=== PATIENT | male | born 1950 | race Caucasian/White ===

== ENCOUNTER 2017-05-07 20:31 | Emergency (ER) | payer MEDICARE, MEDICAID ==
[2017-05-07 20:45] VITALS: BP 114/70; PULSE 88; RESP 20; TEMP 98.3; O2SAT 98
--- NOTE | 2017-05-07 21:10 | C.PDOC ---
History Of Present Illness 67 y/o male hx of sciatica presents to the ED c/o pain to left lower back.The pain radiates to left buttock and the left thigh. The patient has been taking Advil and did not alleviate the pain. The pain worsens while ambulating and doing movement. The patient denies urinary or bowel incontinence, weakness, numbness, trauma Time Seen by Provider: 05/07/17 20:48 Chief Complaint (Nursing): Back Pain History Per: Patient Onset/Duration Of Symptoms: Days Current Symptoms Are (Timing): Still Present Severity: Moderate Past Medical History Reviewed: Historical Data, Nursing Documentation, Vital Signs Vital Signs: Last Vital Signs Temp 98.3 F 05/07/17 20:42 Pulse 88 05/07/17 20:42 Resp 20 05/07/17 20:42 BP 114/70 05/07/17 20:42 Pulse Ox 98 05/07/17 21:57 - Medical History PMH: HTN Denies: Chronic Kidney Disease Surgical History: No Surg Hx Family History: States: Unknown Family Hx - Social History Hx Alcohol Use: Yes Hx Substance Use: No - Immunization History Hx Tetanus Toxoid Vaccination: No Hx Influenza Vaccination: No Hx Pneumococcal Vaccination: Yes Review Of Systems Constitutional: Negative for: Fever, Chills Genitourinary: Negative for: Dysuria, Incontinence, Hematuria Musculoskeletal: Positive for: Back Pain (left lower buttock radiating and the left thigh) Neurological: Negative for: Weakness, Numbness Physical Exam - Physical Exam Appears: Well, Non-toxic, No Acute Distress Skin: Warm, Dry Head: Atraumatic, Normacephalic Eye(s): bilateral: Normal Inspection Oral Mucosa: Moist Neck: Supple Gastrointestinal/Abdominal: Soft, No Tenderness Back: Normal Inspection, No CVA Tenderness, No Vertebral Tenderness, Paraspinal Tenderness (Lt paralumbar), Straight Leg Raising (positive at 40 degrees on the left), Other Extremity: Capillary Refill (<2sec.), No Deformity Neurological/Psych: Oriented x3, Normal Speech, Normal Motor, Normal Sensation Gait: Steady ED Course And Treatment O2 Sat by Pulse Oximetry: 98 (RA) Pulse Ox Interpretation: Normal Progress Note: The patient refused medication in ED. The patient is fully ambulatory. The patient is advised to have a follow up with PMD for further evaluation. Disposition Counseled Patient/Family Regarding: Rx Given - Disposition Disposition: HOME/ ROUTINE Disposition Time: 21:10 Condition: STABLE Additional Instructions: Please follow up with PMD Take meds as directed Return to ER if worse Prescriptions: Cyclobenzaprine [Cyclobenzaprine HCl] 10 mg PO HS #10 tab Naproxen [Naprosyn] 1 tab PO BID PRN #20 tab PRN Reason: Pain Instructions: Sciatica (ED) Forms: [employer] (Greek) - Clinical Impression Clinical Impression: Sciatica - PA / SUPERINTENDENT CUSTODIAN JANITOR / Resident Statement MD/DO has reviewed & agrees with the documentation as recorded. MD/DO has examined the patient and agrees with the treatment plan. - Scribe Statement The provider has reviewed the documentation as recorded by the Carlyn Jeter All medical record entries made by the Carlyn were at my direction and personally dictated by me. I have reviewed the chart and agree that the record accurately reflects my personal performance of the history, physical exam, medical decision making, and the department course for this patient. I have also personally directed, reviewed, and agree with the discharge instructions and disposition.
== END 2017-05-07 21:38 | disposition home or self-care (01) ==
LOC: C.ER 20:31
DX: M54.32 Sciatica, left side (principal)

== ENCOUNTER 2018-12-23 22:56 | Observation (INO) | payer MEDICAID, MEDICARE ==
--- NOTE | 2018-12-23 23:57 | C.PDOC ---
Time Seen by Provider: 12/23/18 23:57 Chief Complaint (Nursing): Back Pain Past Medical History Reviewed: Historical Data, Nursing Documentation, Vital Signs Vital Signs: Last Vital Signs Temp 99.1 F 12/23/18 23:16 Pulse 65 12/23/18 23:16 Resp 20 12/23/18 23:16 BP 137/83 12/23/18 23:16 Pulse Ox 98 12/23/18 23:16 Primary Care Provider: Non [facility] Provider, - Medical History PMH: HTN Denies: Chronic Kidney Disease Family History: States: Unknown Family Hx - Social History Hx Alcohol Use: Yes Hx Substance Use: No - Immunization History Hx Tetanus Toxoid Vaccination: No Hx Influenza Vaccination: No Hx Pneumococcal Vaccination: Yes ED Course And Treatment ECG: Interpreted By Me, Viewed By Me ECG Rhythm: Sinus Rhythm (60), R BBB, Nonspecific Changes O2 Sat by Pulse Oximetry: 98 Pulse Ox Interpretation: Normal Disposition Counseled Patient/Family Regarding: Studies Performed, Diagnosis - Disposition Disposition Time: 23:57 Condition: FAIR Forms: [employer] (Bengali)
[2018-12-24] MEDS ORDERED: Aspirin 325 mg EC Tablets PO STA (00:46)
--- NOTE | 2018-12-24 00:57 | C.PDOC ---
History Of Present Illness Patient presents with some back pain and chest pain worsening over the last 3 days. Dull aching discomfort. No f/c/n/v. Back pain is worse with movement. The chest pain is dull, non radiating. Speaking in complete sentences. Quit smoking 18 months ago Time Seen by Provider: 12/23/18 23:57 Chief Complaint (Nursing): Back Pain History Per: Patient History/Exam Limitations: no limitations Onset/Duration Of Symptoms: Days Severity: Moderate Pain Scale Rating Of: 4 Reports Recently: Treated By A Physician Recent travel outside of the [place]: No Additional History Per: Patient Past Medical History Reviewed: Historical Data, Nursing Documentation, Vital Signs Vital Signs: Last Vital Signs Temp 99.1 F 12/23/18 23:16 Pulse 65 12/23/18 23:16 Resp 20 12/23/18 23:16 BP 137/83 12/23/18 23:16 Pulse Ox 98 12/23/18 23:16 Primary Care Provider: Non [facility] Provider, - Medical History PMH: HTN Denies: Chronic Kidney Disease Family History: States: No Known Family Hx - Social History Hx Alcohol Use: Yes Hx Substance Use: No - Immunization History Hx Tetanus Toxoid Vaccination: No Hx Influenza Vaccination: No Hx Pneumococcal Vaccination: Yes Review Of Systems Constitutional: Negative for: Fever, Chills ENT: Negative for: Throat Pain Cardiovascular: Positive for: Chest Pain Respiratory: Negative for: Shortness of Breath Gastrointestinal: Negative for: Nausea, Vomiting, Abdominal Pain Genitourinary: Negative for: Dysuria Musculoskeletal: Positive for: Back Pain Skin: Negative for: Rash Neurological: Negative for: Weakness Psych: Negative for: Anxiety Physical Exam - Physical Exam Appears: Non-toxic, No Acute Distress Skin: Warm, Dry Head: Normacephalic Eye(s): bilateral: Normal Inspection Oral Mucosa: Moist Neck: Trachea Midline, Supple Chest: Symmetrical Cardiovascular: Rhythm Regular Respiratory: No Rales, Rhonchi, No Wheezing Gastrointestinal/Abdominal: Soft, No Tenderness, No Distention Back: No CVA Tenderness, No Vertebral Tenderness, Muscle Spasm (thoracic t-8-10) Extremity: Normal ROM Extremity: Bilateral: Atraumatic, Normal Color And Temperature, Normal ROM Pulses: Left Dorsalis Pedis: Normal, Right Dorsalis Pedis: Normal Neurological/Psych: Oriented x3, Normal Speech, Normal Cognition Gait: Steady ED Course And Treatment - Laboratory Results Result Diagrams: 12/24/18 01:21 12/24/18 01:21 ECG: Interpreted By Me, Viewed By Me ECG Rhythm: Sinus Rhythm (60), Nonspecific Changes O2 Sat by Pulse Oximetry: 98 Pulse Ox Interpretation: Normal - Radiology CXR: Interpreted by Me, Viewed By Me CXR Interpretation: No: Infiltrates, Fracture, Pnemothorax Disposition Discussed With Dr.: Kali Rodriguez Comment: accepted the pt on his service and took over the care at 3:26AM Doctor Will See Patient In The: ED Counseled Patient/Family Regarding: Studies Performed, Diagnosis - Disposition Disposition: HOSPITALIZED Disposition Time: 00:54 Condition: FAIR Forms: [employer] (Yoruba) - POA Present On Arrival: None - Clinical Impression Clinical Impression: Chest pain Decision To Admit - Pt Status Changed To: Hospital Disposition Of: Observation - . Bed Request Type: Telemetry Admitting Physician: Kali Rodriguez Patient Diagnosis: Chest pain
[2018-12-24 01:02] LABS: SQUAMOUS EPITHIAL 1 /hpf (0-5); URINE BILIRUBIN NEGATIVE (NEGATIVE); URINE BLOOD NEGATIVE (NEGATIVE); URINE CLARITY Clear (Clear); URINE COLOR Straw (YELLOW); URINE GLUCOSE (UA) NORMAL (Normal); URINE LEUKOCYTE ESTERASE NEG Leu/uL (Negative); URINE PROTEIN NEGATIVE (NEGATIVE); URINE UROBILINOGEN NORMAL mg/dL (0.2-1.0)
[2018-12-24] MEDS ORDERED: Aspirin 325 mg EC Tablets PO ONE (01:25)
[2018-12-24 01:34] LABS: PARTIAL THROMBOPLASTIN TIME 30.1 SECONDS (21-34); PROTHROMBIN TIME 11.1 SECONDS (9.7-12.2)
[2018-12-24 01:42] LABS: RBC 4.08 Mil/uL (4.40-5.90)
[2018-12-24 01:45] LABS: ALBUMIN 4.4 g/dL (3.5-5.0); ALT/SGPT 22 U/L (21-72); AST/SGOT 32 U/L (17-59); BLOOD UREA NITROGEN 9 mg/dL (9-20); CALCIUM 8.8 mg/dl (8.6-10.4); GFR NON-AFRICAN AMERICAN > 60; LIPASE 45 U/L (23-300)
[2018-12-24 01:46] LABS: HEMOGLOBIN 14.3 g/dL (12.0-18.0); MEAN CELL VOLUME 101.7 fL (80.0-94.0); MEAN CORPUSCULAR HGB CONC 34.5 g/dL (33.0-37.0); MEAN PLATELET VOLUME 8.5 fL (7.2-11.7); RED CELL DISTRIBUTION WIDTH 12.8 % (11.5-14.5); WHITE BLOOD COUNT 6.3 K/uL (4.8-10.8)
[2018-12-24 01:48] LABS: PLATELET COUNT 60 K/uL (130-400)
[2018-12-24 02:52] LABS: B-TYPE NATRIURETIC PEPTIDE 145 pg/mL (0-900)
--- NOTE | 2018-12-24 03:36 | CP.PCM.HP ---
<Allie Davidson - Last Filed: 12/24/18 05:20> History of Present Illness - History of Present Illness History of Present Illness: Resident History & Physical for Hospitalist Service Patient is a 68 year old male with past medical history of hypertension and glaucoma presenting with chief complaint of chest pain which began about 2 days ago. Pain is intermittent, localized to the center of anterior chest wall, and described as a squeezing sensation lasting a few minutes at a time. Admits to associated shortness of breath. Denies fevers, chills, nausea, vomiting, a bdominal pain, diarrhea, dysuria. Patient is complaint with his medication for hypertension. PMH: hypertension, glaucoma PSH: eye surgery SHx: rare alcohol use, denies illicit drug use, smoked 1 pack every 3 days for 8 years (quit 2017) FHx: denies Allergies: none Present on Admission - Present on Admission Any Indicators Present on Admission: No Review of Systems - Review of Systems All systems: reviewed and no additional remarkable complaints except (as per H PI) Past Patient History - Infectious Disease Hx of Infectious Diseases: None - Past Medical History & Family History Past Medical History?: Yes - Past Social History Smoking Status: Former Smoker - CARDIAC Hx Hypertension: Yes - PULMONARY Hx Respiratory Disorders: No - NEUROLOGICAL Hx Neurological Disorder: No - HEENT Hx HEENT Problems: Yes Hx Glaucoma: Yes - RENAL Hx Chronic Kidney Disease: No - ENDOCRINE/METABOLIC Hx Endocrine Disorders: No - HEMATOLOGICAL/ONCOLOGICAL Hx Blood Disorders: No - INTEGUMENTARY Hx Dermatological Problems: No - MUSCULOSKELETAL/RHEUMATOLOGICAL Hx Musculoskeletal Disorders: No - GASTROINTESTINAL Hx Gastrointestinal Disorders: No - GENITOURINARY/GYNECOLOGICAL Hx Genitourinary Disorders: No - PSYCHIATRIC Hx Substance Use: No - SURGICAL HISTORY Hx Surgeries: Yes Other/Comment: bilateral eye surgery - ANESTHESIA Hx Anesthesia: Yes Hx Anesthesia Reactions: No Hx Malignant Hyperthermia: No Meds Allergies/Adverse Reactions: Allergies Allergy/AdvReac Type Severity Reaction Status Date / Time No Known Allergies Allergy Verified 12/23/18 23:23 Physical Exam - Constitutional Appears: Non-toxic, No Acute Distress - Head Exam Head Exam: ATRAUMATIC, NORMOCEPHALIC - Eye Exam Eye Exam: EOMI, Normal appearance, PERRL - ENT Exam ENT Exam: Mucous Membranes Moist - Respiratory Exam Respiratory Exam: Clear to Auscultation Bilateral, NORMAL BREATHING PATTERN. absent: Accessory Muscle Use, Rhonchi, Wheezes, Respiratory Distress - Cardiovascular Exam Cardiovascular Exam: REGULAR RHYTHM, +S1, +S2. absent: Tachycardia, Systolic Murmur - GI/Abdominal Exam GI & Abdominal Exam: Normal Bowel Sounds, Soft. absent: Distended, Firm, Guarding, Rebound, Rigid, Tenderness - Extremities Exam Extremities exam: Positive for: normal inspection - Neurological Exam Neurological exam: Alert, CN II-XII Intact, Oriented x3 - Psychiatric Exam Psychiatric exam: Normal Affect, Normal Mood - Skin Skin Exam: Dry, Intact, Warm Results - Vital Signs Recent Vital Signs: Last Vital Signs Temp 99.1 F 12/23/18 23:16 Pulse 65 12/23/18 23:16 Resp 20 12/23/18 23:16 BP 137/83 12/23/18 23:16 Pulse Ox 98 12/24/18 03:27 - Labs Result Diagrams: 12/24/18 01:21 12/24/18 01:21 Labs: Laboratory Results - last 24 hr 12/24/18 12/24/18 12/24/18 00:51 01:21 01:21 WBC 6.3 RBC 4.08 L Hgb 14.3 Hct 41.5 MCV 101.7 H D MCH 35.0 H MCHC 34.5 RDW 12.8 Plt Count 60 L D MPV 8.5 PT 11.1 INR 1.0 APTT 30.1 Sodium Potassium Chloride Carbon Dioxide Anion Gap BUN Creatinine Est GFR ( Amer) Est GFR (Non-Af Amer) Random Glucose Calcium Total Bilirubin AST ALT Alkaline Phosphatase Troponin I NT-Pro-B Natriuret Pep Total Protein Albumin Globulin Albumin/Globulin Ratio Lipase Urine Color Straw Urine Clarity Clear Urine pH 6.0 Ur Specific [place] 1.002 L Urine Protein Negative Urine Glucose (UA) Normal Urine Ketones Negative Urine Blood Negative Urine Nitrate Negative Urine Bilirubin Negative Urine Urobilinogen Normal Ur Leukocyte Esterase Neg Urine WBC (Auto) 1 Urine RBC (Auto) < 1 Ur Squamous Epith Cells 1 12/24/18 01:21 WBC RBC Hgb Hct MCV MCH MCHC RDW Plt Count MPV PT INR APTT Sodium 138 Potassium 4.5 Chloride 104 Carbon Dioxide 22 Anion Gap 17 BUN 9 Creatinine 0.8 Est GFR ( Amer) > 60 Est GFR (Non-Af Amer) > 60 Random Glucose 85 Calcium 8.8 Total Bilirubin 0.4 AST 32 ALT 22 Alkaline Phosphatase 48 Troponin I < 0.0120 NT-Pro-B Natriuret Pep 145 Total Protein 6.7 Albumin 4.4 Globulin 2.2 Albumin/Globulin Ratio 2.0 Lipase 45 Urine Color Urine Clarity Urine pH Ur Specific [place] Urine Protein Urine Glucose (UA) Urine Ketones Urine Blood Urine Nitrate Urine Bilirubin Urine Urobilinogen Ur Leukocyte Esterase Urine WBC (Auto) Urine RBC (Auto) Ur Squamous Epith Cells Assessment & Plan - Assessment and Plan (Free Text) Assessment: Patient is a 68 year old male with past medical history of hypertension and glaucoma presenting with chief complaint of chest pain Plan: Chest pain - EKG shows NSR, nonspecific changes - JACOB negx1, followup JACOB x2 - CXR unremarkable - Cardiology consulted, appreciate recs - TSH, free T4 - Hgba1c - Lipid panel - O2 PRN - Nitrobid PRN - Aspirin Hypertension - confirm home meds with pharmacy PPX - Lovenox SC - Protonix IVP Case reviewed with Dr. Jennifer Davidson PGY-1 <Kali Rodriguez - Last Filed: 12/24/18 06:22> Results - Vital Signs Recent Vital Signs: Last Vital Signs Temp 98.0 F 12/24/18 04:20 Pulse 56 L 12/24/18 04:20 Resp 20 12/24/18 04:20 BP 171/90 H 12/24/18 04:20 Pulse Ox 98 12/24/18 04:20 - Labs Result Diagrams: 12/24/18 01:21 12/24/18 01:21 Labs: Laboratory Results - last 24 hr 12/24/18 12/24/18 12/24/18 00:51 01:21 01:21 WBC 6.3 RBC 4.08 L Hgb 14.3 Hct 41.5 MCV 101.7 H D MCH 35.0 H MCHC 34.5 RDW 12.8 Plt Count 60 L D MPV 8.5 Neut # (Auto) 3.3 Lymph # (Auto) 1.7 [place] # (Auto) 0.8 Eos # (Auto) 0.5 Baso # (Auto) 0.1 Neutrophils % (Manual) 51 Band Neutrophils % 1 Lymphocytes % (Manual) 24 Reactive Lymphs % 1 H Monocytes % (Manual) 15 H Eosinophils % (Manual) 5 H Basophils % (Manual) 2 Myelocytes % 1 H Differential Comment Platelet Estimate Decreased L Plt Clumps, EDTA Present PT 11.1 INR 1.0 APTT 30.1 Sodium Potassium Chloride Carbon Dioxide Anion Gap BUN Creatinine Est GFR ( Amer) Est GFR (Non-Af Amer) Random Glucose Calcium Total Bilirubin AST ALT Alkaline Phosphatase Troponin I NT-Pro-B Natriuret Pep Total Protein Albumin Globulin Albumin/Globulin Ratio Lipase Urine Color Straw Urine Clarity Clear Urine pH 6.0 Ur Specific [place] 1.002 L Urine Protein Negative Urine Glucose (UA) Normal Urine Ketones Negative Urine Blood Negative Urine Nitrate Negative Urine Bilirubin Negative Urine Urobilinogen Normal Ur Leukocyte Esterase Neg Urine WBC (Auto) 1 Urine RBC (Auto) < 1 Ur Squamous Epith Cells 1 12/24/18 01:21 WBC RBC Hgb Hct MCV MCH MCHC RDW Plt Count MPV Neut # (Auto) Lymph # (Auto) [place] # (Auto) Eos # (Auto) Baso # (Auto) Neutrophils % (Manual) Band Neutrophils % Lymphocytes % (Manual) Reactive Lymphs % Monocytes % (Manual) Eosinophils % (Manual) Basophils % (Manual) Myelocytes % Differential Comment Platelet Estimate Plt Clumps, EDTA PT INR APTT Sodium 138 Potassium 4.5 Chloride 104 Carbon Dioxide 22 Anion Gap 17 BUN 9 Creatinine 0.8 Est GFR ( Amer) > 60 Est GFR (Non-Af Amer) > 60 Random Glucose 85 Calcium 8.8 Total Bilirubin 0.4 AST 32 ALT 22 Alkaline Phosphatase 48 Troponin I < 0.0120 NT-Pro-B Natriuret Pep 145 Total Protein 6.7 Albumin 4.4 Globulin 2.2 Albumin/Globulin Ratio 2.0 Lipase 45 Urine Color Urine Clarity Urine pH Ur Specific [place] Urine Protein Urine Glucose (UA) Urine Ketones Urine Blood Urine Nitrate Urine Bilirubin Urine Urobilinogen Ur Leukocyte Esterase Urine WBC (Auto) Urine RBC (Auto) Ur Squamous Epith Cells Assessment & Plan - Date & Time Date: 12/24/18 (I have seen and examined the patient. I agree with the findings and plan of care as documented by Dr. Davidson. Patient with chest pain. ROMIx3 with EKG. aspirin and Statin. History of hypertension. Confirm meds with pharmacy and continue home meds. Monitor for acute changes.) Time: 06:21 Attending/Attestation - Attestation I have personally seen and examined this patient.: Yes I have fully participated in the care of the patient.: Yes I have reviewed all pertinent clinical information: Yes
[2018-12-24] MEDS ORDERED: Nitroglycerin 2% Ointment Foilpak UD TOP PRN (04:13)
[2018-12-24 04:32] LABS: BANDS 1 % (0-2); BASOPHIL 2 % (0-2); EOSINOPHIL 5 % (0-4); LYMPHOCYTE 24 % (20-40); MONOCYTE 15 % (0-10); MYELOCYTE 1 % (0-0); NEUTROPHIL 51 % (50-75); PLATELET CLUMPS PRESENT; PLATELET ESTIMATE DECREASED (NORMAL); REACTIVE LYMPHOCYTES 1 % (0-0); TOTAL CELLS COUNTED 100
[2018-12-24 04:35] LABS: LYMPH # 1.7 K/uL (1.0-4.3); NEUT # 3.3 K/uL (1.8-7.0)
[2018-12-24 04:36] LABS: BASO # 0.1 K/uL (0.0-0.2); EOS # 0.5 K/uL (0.0-0.7); MONO # 0.8 K/uL (0.0-0.8)
--- NOTE | 2018-12-24 07:58 | CP.PCM.PN ---
"Subjective - Date & Time of Evaluation Date of Evaluation: 12/24/18 Time of Evaluation: 07:57 - Subjective Subjective: PGY2 Progress Note for Dr. Galindo Patient seen and examined at bedside. Per nursing no acute events occurred overnight. Patient reports some back discomfort on examination that comes and goes. Patient denies any alleviating or modifying factors. Objective - Vital Signs/Intake and Output Vital Signs (last 24 hours): Temp Pulse Resp BP Pulse Ox 98.0 F 56 L 20 171/90 H 98 12/24/18 04:20 12/24/18 04:20 12/24/18 04:20 12/24/18 04:20 12/24/18 04:20 - Medications Medications: Current Medications Acetaminophen (Tylenol 325mg Tab) 650 mg PO Q6 PRN PRN Reason: Pain, moderate (4-7) Aspirin (Ecotrin) 81 mg PO DAILY [place] Enoxaparin Sodium (Lovenox) 40 mg SC DAILY [place] Nitroglycerin (Nitro-Bid 2% Oint) 1 ea TOP Q1H PRN PRN Reason: Pain, moderate (4-7) Pantoprazole Sodium (Protonix Inj) 40 mg IVP DAILY [place] - Labs Labs: 12/24/18 01:21 12/24/18 01:21 PT 11.1 SECONDS (9.7-12.2) 12/24/18 01:21 INR 1.0 12/24/18 01:21 APTT 30.1 SECONDS (21-34) 12/24/18 01:21 - Head Exam Head Exam: ATRAUMATIC, NORMAL INSPECTION - Eye Exam Eye Exam: EOMI, Normal appearance, PERRL. absent: Periorbital tenderness Pupil Exam: NORMAL ACCOMODATION, PERRL. absent: Irregular, Unequal - ENT Exam ENT Exam: Mucous Membranes Moist, Normal Oropharynx - Respiratory Exam Respiratory Exam: Clear to Ausculation Bilateral, NORMAL BREATHING PATTERN. absent: Prolonged Expiratory Phase, Respiratory Distress - Cardiovascular Exam Cardiovascular Exam: REGULAR RHYTHM, RRR, +S1, +S2. absent: Rubs - GI/Abdominal Exam GI & Abdominal Exam: Soft, Normal Bowel Sounds. absent: Hyperactive Bowel Sounds - Extremities Exam Extremities Exam: Full ROM, Normal Inspection. absent: Pedal Edema - Back Exam Back Exam: NORMAL INSPECTION. absent: CVA tenderness (R), paraspinal tenderness - Neurological Exam Neurological Exam: Awake, CN II-XII Intact, Oriented x3 - Psychiatric Exam Psychiatric exam: Normal Affect, Normal Mood. absent: Depressed - Skin Skin Exam: Dry, Intact Assessment and Plan - Assessment and Plan (Free Text) Plan: Patient is a 68 year old male with past medical history of hypertension and glaucoma presenting with chief complaint of chest pain Plan: Chest pain - EKG shows NSR, nonspecific changes - JACOB negx3 - CXR unremarkable - Cardiology consulted, appreciate recs - TSH:.24 |Free T4:1.01 - Hgba1c:5% - Lipid panel: Triglycerides 72| Cholesterol 163| LDL 85| HDL 76 - O2 PRN - Nitrobid PRN - Aspirin 81 mg PO DAILY -Nitroglycerin 2% 1 EA top q1 prn Hypertension - Restart Losartan 100mg PO DAILY Thrombocytopenia PLT:64 Hemdynamically stable Heme/onc Dr. Lynch consulted--> Help appreciated Glaucoma Chronic -Continue Dorzolamide 1ml OU BID -Continue Timolol 1 drop OU BID PPX - Lovenox SC - Protonix IVP Case reviewed with Dr. Galindo. Gualberto Ortiz, PGY2"
[2018-12-24 08:09] LABS: BASO # 0.2 K/uL (0.0-0.2); EOS # 0.4 K/uL (0.0-0.7); LYMPH # 1.7 K/uL (1.0-4.3); LYMPH % 27.7 % (20.0-40.0); MEAN CELL VOLUME 100.4 fL (80.0-94.0); MEAN CORPUSCULAR HEMOGLOBIN 35.4 pg (27.0-31.0); MEAN CORPUSCULAR HGB CONC 35.2 g/dL (33.0-37.0); MEAN PLATELET VOLUME 9.2 fL (7.2-11.7); MONO # 0.8 K/uL (0.0-0.8); MONO % 12.4 % (0.0-10.0); NEUT % 49.9 % (50.0-75.0); NRBC % 0.1 % (0.0-2.0); RBC 3.96 Mil/uL (4.40-5.90); RED CELL DISTRIBUTION WIDTH 12.6 % (11.5-14.5); WHITE BLOOD COUNT 6.1 K/uL (4.8-10.8)
[2018-12-24] MEDS ORDERED: Enoxaparin 40 mg Syringe SC SCH (10:00)
[2018-12-24 11:26] LABS: CK-MB 1.54 ng/mL (0.0-3.38)
--- NOTE | 2018-12-24 12:00 | US ---
Date of service: 12/24/2018 HISTORY: Liver COMPARISON: Comparison is made to the previous CT dated 01/09/2016 TECHNIQUE: Sonographic evaluation of the right upper quadrant of the abdomen. FINDINGS: LIVER: Measures 14.1 cm in length. Mild increased echogenicity of the liver parenchyma. No mass. No intrahepatic bile duct dilatation. GALLBLADDER: Unremarkable. No gallstones. COMMON BILE DUCT: Measures 3.3 mm. No stones. No dilatation. PANCREAS: The pancreas is obscured by overlying bowel gas. RIGHT KIDNEY: Measures 10 x 5.1 x 5 cm in length. Normal echogenicity. No calculus, mass, or hydronephrosis. AORTA: No aneurysmal dilatation. IVC: Unremarkable. OTHER FINDINGS: None . IMPRESSION: Mildly echogenic liver suggestive of hepatic steatosis. The pancreas is obscured by overlying bowel gas. No evidence of cholelithiasis or cholecystitis.
[2018-12-24 12:22] LABS: FOLATE 12.5 ng/mL
--- NOTE | 2018-12-24 17:13 | RAD ---
Date of service: 12/24/2018 PROCEDURE: CHEST RADIOGRAPH, 1 VIEW HISTORY: chest pain COMPARISON: 10/28/2015 FINDINGS: LUNGS: No new infiltrate or consolidation noted. PLEURA: No pneumothorax or pleural fluid seen. CARDIOVASCULAR: No aortic atherosclerotic calcification present. Normal. OSSEOUS STRUCTURES: No significant abnormalities. VISUALIZED UPPER ABDOMEN: Normal. OTHER FINDINGS: None. IMPRESSION: No active disease.
[2018-12-24] MEDS: Dorzolamide 2% Opht Sol 10ml OU SCH (18:07)
--- NOTE | 2018-12-24 22:42 | CP.PCM.CON ---
History of Present Illness - History of Present Illness History of Present Illness: CC: Chest Pain Patient is a 68 year old male with past medical history of hypertension and glaucoma presenting with chief complaint of chest pain which began about 2 days ago. Pain is intermittent, localized to the center of anterior chest wall, and described as a squeezing sensation lasting a few minutes at a time. Admits to associated shortness of breath. Denies fevers, chills, nausea, vomiting, abdominal pain, diarrhea, dysuria. Patient is complaint with his medication for hypertension. PMH: hypertension, glaucoma PSH: eye surgery SHx: rare alcohol use, denies illicit drug use, smoked 1 pack every 3 days for 8 years (quit 2017) FHx: denies Allergies: none Present on Admission - Present on Admission Any Indicators Present on Admission: No Review of Systems - Review of Systems All systems: reviewed and no additional remarkable complaints except (as per HPI) Past Patient History - Infectious Disease Hx of Infectious Diseases: None - Past Medical History & Family History Past Medical History?: Yes - Past Social History Smoking Status: Former Smoker - CARDIAC Hx Hypertension: Yes - PULMONARY Hx Respiratory Disorders: No - NEUROLOGICAL Hx Neurological Disorder: No - HEENT Hx HEENT Problems: Yes Hx Glaucoma: Yes - RENAL Hx Chronic Kidney Disease: No - ENDOCRINE/METABOLIC Hx Endocrine Disorders: No - HEMATOLOGICAL/ONCOLOGICAL Hx Blood Disorders: No - INTEGUMENTARY Hx Dermatological Problems: No - MUSCULOSKELETAL/RHEUMATOLOGICAL Hx Musculoskeletal Disorders: No - GASTROINTESTINAL Hx Gastrointestinal Disorders: No - GENITOURINARY/GYNECOLOGICAL Hx Genitourinary Disorders: No - PSYCHIATRIC Hx Substance Use: No - SURGICAL HISTORY Hx Surgeries: Yes Other/Comment: bilateral eye surgery - ANESTHESIA Hx Anesthesia: Yes Hx Anesthesia Reactions: No Hx Malignant Hyperthermia: No Meds Allergies/Adverse Reactions: Allergies Allergy/AdvReac Type Severity Reaction Status Date / Time No Known Allergies Allergy Verified 12/23/18 23:23 Physical Exam - Constitutional Appears: Non-toxic, No Acute Distress - Head Exam Head Exam: ATRAUMATIC, NORMOCEPHALIC - Eye Exam Eye Exam: EOMI, Normal appearance, PERRL - ENT Exam ENT Exam: Mucous Membranes Moist - Respiratory Exam Respiratory Exam: Clear to Auscultation Bilateral, NORMAL BREATHING PATTERN. absent: Accessory Muscle Use, Rhonchi, Wheezes, Respiratory Distress - Cardiovascular Exam Cardiovascular Exam: REGULAR RHYTHM, +S1, +S2. absent: Tachycardia, Systolic Murmur - GI/Abdominal Exam GI & Abdominal Exam: Normal Bowel Sounds, Soft. absent: Distended, Firm, Guarding, Rebound, Rigid, Tenderness - Extremities Exam Extremities exam: Positive for: normal inspection - Neurological Exam Neurological exam: Alert, CN II-XII Intact, Oriented x3 - Psychiatric Exam Psychiatric exam: Normal Affect, Normal Mood - Skin Skin Exam: Dry, Intact, Warm Assessment & Plan - Assessment and Plan (Free Text) Assessment: Patient is a 68 year old male with past medical history of hypertension and glaucoma presenting with chief complaint of chest pain Plan: Chest pain ECHO and Stress test on Tuesday Hypertension - confirm home meds with pharmacy PPX - Lovenox SC - Protonix IVP Past Patient History - Infectious Disease Hx of Infectious Diseases: None - Past Medical History & Family History Past Medical History?: Yes - Past Social History Smoking Status: Former Smoker - CARDIAC Hx Hypertension: Yes - PULMONARY Hx Respiratory Disorders: No - NEUROLOGICAL Hx Neurological Disorder: No - HEENT Hx HEENT Problems: Yes Hx Glaucoma: Yes - RENAL Hx Chronic Kidney Disease: No - ENDOCRINE/METABOLIC Hx Endocrine Disorders: No - HEMATOLOGICAL/ONCOLOGICAL Hx Blood Disorders: No - INTEGUMENTARY Hx Dermatological Problems: No - MUSCULOSKELETAL/RHEUMATOLOGICAL Hx Musculoskeletal Disorders: No - GASTROINTESTINAL Hx Gastrointestinal Disorders: No - GENITOURINARY/GYNECOLOGICAL Hx Genitourinary Disorders: No - PSYCHIATRIC Hx Substance Use: No - SURGICAL HISTORY Hx Surgeries: Yes Other/Comment: bilateral eye surgery - ANESTHESIA Hx Anesthesia: Yes Hx Anesthesia Reactions: No Hx Malignant Hyperthermia: No Meds Allergies/Adverse Reactions: Allergies Allergy/AdvReac Type Severity Reaction Status Date / Time No Known Allergies Allergy Verified 12/23/18 23:23 - Medications Medications: Current Medications Acetaminophen (Tylenol 325mg Tab) 650 mg PO Q6 PRN PRN Reason: Pain, moderate (4-7) Aspirin (Ecotrin) 81 mg PO DAILY [facility] Last Admin: 12/24/18 09:25 Dose: Not Given Brimonidine Tartrate (Alphagan 0.2% Opht) 0 ml OU DAILY [facility] Dorzolamide HCl (Trusopt) 1 ml OU BID [facility] Last Admin: 12/24/18 18:07 Dose: 2 drop Enoxaparin Sodium (Lovenox) 40 mg SC DAILY [facility] Last Admin: 12/24/18 09:25 Dose: Not Given Losartan Potassium (Cozaar) 100 mg PO DAILY [facility] Nitroglycerin (Nitro-Bid 2% Oint) 1 ea TOP Q1H PRN PRN Reason: Pain, moderate (4-7) Pantoprazole Sodium (Protonix Inj) 40 mg IVP DAILY [facility] Last Admin: 12/24/18 09:28 Dose: 40 mg Timolol Maleate (Timoptic 0.5% Ophth Soln) 1 drop OU BID [facility] Last Admin: 12/24/18 18:06 Dose: 1 drop Results - Vital Signs Recent Vital Signs: Last Vital Signs Temp 97.5 F L 12/24/18 16:40 Pulse 61 12/24/18 16:40 Resp 20 12/24/18 16:40 BP 149/78 12/24/18 16:40 Pulse Ox 96 12/24/18 16:40 - Labs Result Diagrams: 12/24/18 08:00 12/24/18 01:21 Labs: Laboratory Results - last 24 hr 12/24/18 12/24/18 12/24/18 00:51 01:21 01:21 WBC 6.3 RBC 4.08 L Hgb 14.3 Hct 41.5 MCV 101.7 H D MCH 35.0 H MCHC 34.5 RDW 12.8 Plt Count 60 L D MPV 8.5 Neut % (Auto) Lymph % (Auto) [place] % (Auto) Eos % (Auto) Baso % (Auto) Neut # (Auto) 3.3 Lymph # (Auto) 1.7 [place] # (Auto) 0.8 Eos # (Auto) 0.5 Baso # (Auto) 0.1 Neutrophils % (Manual) 51 Band Neutrophils % 1 Lymphocytes % (Manual) 24 Reactive Lymphs % 1 H Monocytes % (Manual) 15 H Eosinophils % (Manual) 5 H Basophils % (Manual) 2 Myelocytes % 1 H Differential Comment Platelet Estimate Decreased L Plt Clumps, EDTA Present PT 11.1 INR 1.0 APTT 30.1 Sodium Potassium Chloride Carbon Dioxide Anion Gap BUN Creatinine Est GFR ( Amer) Est GFR (Non-Af Amer) Random Glucose Hemoglobin A1c Calcium Phosphorus Magnesium Total Bilirubin AST ALT Alkaline Phosphatase Total Creatine Kinase CK-MB (Mass) Troponin I NT-Pro-B Natriuret Pep Total Protein Albumin Globulin Albumin/Globulin Ratio Triglycerides Cholesterol LDL Cholesterol Direct HDL Cholesterol Lipase Vitamin B12 Folate Free T4 TSH 3rd Generation Urine Color Straw Urine Clarity Clear Urine pH 6.0 Ur Specific [place] 1.002 L Urine Protein Negative Urine Glucose (UA) Normal Urine Ketones Negative Urine Blood Negative Urine Nitrate Negative Urine Bilirubin Negative Urine Urobilinogen Normal Ur Leukocyte Esterase Neg Urine WBC (Auto) 1 Urine RBC (Auto) < 1 Ur Squamous Epith Cells 1 12/24/18 12/24/18 12/24/18 01:21 08:00 08:00 WBC RBC Hgb Hct MCV MCH MCHC RDW Plt Count MPV Neut % (Auto) Lymph % (Auto) [place] % (Auto) Eos % (Auto) Baso % (Auto) Neut # (Auto) Lymph # (Auto) [place] # (Auto) Eos # (Auto) Baso # (Auto) Neutrophils % (Manual) Band Neutrophils % Lymphocytes % (Manual) Reactive Lymphs % Monocytes % (Manual) Eosinophils % (Manual) Basophils % (Manual) Myelocytes % Differential Comment Platelet Estimate Plt Clumps, EDTA PT INR APTT Sodium 138 Potassium 4.5 Chloride 104 Carbon Dioxide 22 Anion Gap 17 BUN 9 Creatinine 0.8 Est GFR ( Amer) > 60 Est GFR (Non-Af Amer) > 60 Random Glucose 85 Hemoglobin A1c 5.0 Calcium 8.8 Phosphorus 3.7 Magnesium 2.0 Total Bilirubin 0.4 AST 32 ALT 22 Alkaline Phosphatase 48 Total Creatine Kinase CK-MB (Mass) Troponin I < 0.0120 NT-Pro-B Natriuret Pep 145 Total Protein 6.7 Albumin 4.4 Globulin 2.2 Albumin/Globulin Ratio 2.0 Triglycerides 72 Cholesterol 163 LDL Cholesterol Direct 85 HDL Cholesterol 76 H Lipase 45 Vitamin B12 Folate Free T4 TSH 3rd Generation 0.24 L Urine Color Urine Clarity Urine pH Ur Specific [place] Urine Protein Urine Glucose (UA) Urine Ketones Urine Blood Urine Nitrate Urine Bilirubin Urine Urobilinogen Ur Leukocyte Esterase Urine WBC (Auto) Urine RBC (Auto) Ur Squamous Epith Cells 12/24/18 12/24/18 12/24/18 08:00 08:00 08:00 WBC 6.1 RBC 3.96 L Hgb 14.0 Hct 39.8 MCV 100.4 H MCH 35.4 H MCHC 35.2 RDW 12.6 Plt Count 54 L MPV 9.2 Neut % (Auto) 49.9 L Lymph % (Auto) 27.7 [place] % (Auto) 12.4 H Eos % (Auto) 7.0 H Baso % (Auto) 3.0 H Neut # (Auto) 3.0 Lymph # (Auto) 1.7 [place] # (Auto) 0.8 Eos # (Auto) 0.4 Baso # (Auto) 0.2 Neutrophils % (Manual) Band Neutrophils % Lymphocytes % (Manual) Reactive Lymphs % Monocytes % (Manual) Eosinophils % (Manual) Basophils % (Manual) Myelocytes % Differential Comment Platelet Estimate Plt Clumps, EDTA PT INR APTT Sodium Potassium Chloride Carbon Dioxide Anion Gap BUN Creatinine Est GFR ( Amer) Est GFR (Non-Af Amer) Random Glucose Hemoglobin A1c Calcium Phosphorus Magnesium Total Bilirubin AST ALT Alkaline Phosphatase Total Creatine Kinase 122 CK-MB (Mass) 1.54 Troponin I < 0.0120 NT-Pro-B Natriuret Pep Total Protein Albumin Globulin Albumin/Globulin Ratio Triglycerides Cholesterol LDL Cholesterol Direct HDL Cholesterol Lipase Vitamin B12 426 Folate 12.5 Free T4 1.01 TSH 3rd Generation Urine Color Urine Clarity Urine pH Ur Specific [place] Urine Protein Urine Glucose (UA) Urine Ketones Urine Blood Urine Nitrate Urine Bilirubin Urine Urobilinogen Ur Leukocyte Esterase Urine WBC (Auto) Urine RBC (Auto) Ur Squamous Epith Cells 12/24/18 16:33 WBC RBC Hgb Hct MCV MCH MCHC RDW Plt Count MPV Neut % (Auto) Lymph % (Auto) [place] % (Auto) Eos % (Auto) Baso % (Auto) Neut # (Auto) Lymph # (Auto) [place] # (Auto) Eos # (Auto) Baso # (Auto) Neutrophils % (Manual) Band Neutrophils % Lymphocytes % (Manual) Reactive Lymphs % Monocytes % (Manual) Eosinophils % (Manual) Basophils % (Manual) Myelocytes % Differential Comment Platelet Estimate Plt Clumps, EDTA PT INR APTT Sodium Potassium Chloride Carbon Dioxide Anion Gap BUN Creatinine Est GFR ( Amer) Est GFR (Non-Af Amer) Random Glucose Hemoglobin A1c Calcium Phosphorus Magnesium Total Bilirubin AST ALT Alkaline Phosphatase Total Creatine Kinase 119 CK-MB (Mass) 1.20 Troponin I < 0.0120 NT-Pro-B Natriuret Pep Total Protein Albumin Globulin Albumin/Globulin Ratio Triglycerides Cholesterol LDL Cholesterol Direct HDL Cholesterol Lipase Vitamin B12 Folate Free T4 TSH 3rd Generation Urine Color Urine Clarity Urine pH Ur Specific [place] Urine Protein Urine Glucose (UA) Urine Ketones Urine Blood Urine Nitrate Urine Bilirubin Urine Urobilinogen Ur Leukocyte Esterase Urine WBC (Auto) Urine RBC (Auto) Ur Squamous Epith Cells
--- NOTE | 2018-12-25 08:20 | CP.PCM.PN ---
"Subjective - Date & Time of Evaluation Date of Evaluation: 12/25/18 Time of Evaluation: 10:00 - Subjective Subjective: Progress Note for Hospitalist Service, Dr. Galindo Pt seen and examined at bedside this am. Denies any acute complaints. States chest pain has resolved. No acute events reported overnight by staff. Denies headache, dizziness, sob, n/v/d/c, abd pain, urinary complaints, or other symptoms. Objective - Vital Signs/Intake and Output Vital Signs (last 24 hours): Temp Pulse Resp BP Pulse Ox 97.7 F 58 L 20 164/89 H 98 12/25/18 07:00 12/25/18 07:16 12/25/18 07:00 12/25/18 07:00 12/25/18 07:00 - Medications Medications: Current Medications Acetaminophen (Tylenol 325mg Tab) 650 mg PO Q6 PRN PRN Reason: Pain, moderate (4-7) Aspirin (Ecotrin) 81 mg PO DAILY [facility] Last Admin: 12/24/18 09:25 Dose: Not Given Brimonidine Tartrate (Alphagan 0.2% Opht) 0 ml OU DAILY [facility] Dorzolamide HCl (Trusopt) 1 ml OU BID [facility] Last Admin: 12/24/18 18:07 Dose: 2 drop Enoxaparin Sodium (Lovenox) 40 mg SC DAILY [facility] Last Admin: 12/24/18 09:25 Dose: Not Given Losartan Potassium (Cozaar) 100 mg PO DAILY [facility] Nitroglycerin (Nitro-Bid 2% Oint) 1 ea TOP Q1H PRN PRN Reason: Pain, moderate (4-7) Pantoprazole Sodium (Protonix Inj) 40 mg IVP DAILY [facility] Last Admin: 12/24/18 09:28 Dose: 40 mg Timolol Maleate (Timoptic 0.5% Ophth Soln) 1 drop OU BID [facility] Last Admin: 12/24/18 18:06 Dose: 1 drop - Labs Labs: 12/24/18 08:00 12/24/18 01:21 PT 11.1 SECONDS (9.7-12.2) 12/24/18 01:21 INR 1.0 12/24/18 01:21 APTT 30.1 SECONDS (21-34) 12/24/18 01:21 - Constitutional Appears: Non-toxic, No Acute Distress - Head Exam Head Exam: ATRAUMATIC, NORMOCEPHALIC - Eye Exam Eye Exam: EOMI, Normal appearance, PERRL - ENT Exam ENT Exam: Mucous Membranes Moist - Respiratory Exam Respiratory Exam: Clear to Ausculation Bilateral, NORMAL BREATHING PATTERN. absent: Rales, Rhonchi, Wheezes - Cardiovascular Exam Cardiovascular Exam: +S1, +S2. absent: Gallop, Rubs, Murmur - GI/Abdominal Exam GI & Abdominal Exam: Soft, Normal Bowel Sounds. absent: Distended, Tenderness, Organomegaly - Extremities Exam Extremities Exam: Full ROM, Normal Capillary Refill, Normal Inspection. absent: Pedal Edema, Tenderness - Back Exam Back Exam: Full ROM, NORMAL INSPECTION. absent: paraspinal tenderness - Neurological Exam Neurological Exam: Alert, Awake, CN II-XII Intact, Normal Gait, Oriented x3 - Skin Skin Exam: Dry, Intact, Normal Color, Warm Assessment and Plan - Assessment and Plan (Free Text) Assessment: 68 year old male with past medical history of hypertension and glaucoma presenting with chief complaint of chest pain. Cardiology consulted (Dr. Benitez). Plan: Chest pain - EKG shows NSR, nonspecific changes - JACOB neg x3 - CXR unremarkable - Cardiology consulted, appreciate recs - TSH: 0.24, Free T4:1.01; can have repeat levels outpatient in 6 weeks - Hgba1c: 5% - Lipid panel: Triglycerides 72| Cholesterol 163| LDL 85| HDL 76 - Nitrobid PRN - Aspirin 81 mg PO DAILY - Nitroglycerin 2% 1 EA top q1 prn - Dr. Benitez consulted, recs appreciated - NPO after midnight for cardiac stress test and echo tomorrow Hypertension - C/w Losartan 100mg PO DAILY Thrombocytopenia -Plts stable this am -Hemdynamically stable -Heme/onc Dr. Lynch consulted--> Help appreciated Glaucoma -Continue Dorzolamide 1ml OU BID -Continue Timolol 1 drop OU BID PPX - Lovenox SC - Protonix IVP Pt seen, examined with, and plan discussed with Dr. Galindo, attending physician. Rolf Gama, DO PGY-1, [employer] Pager #[phone]"
[2018-12-25 08:43] LABS: BASO # 0.1 K/uL (0.0-0.2); EOS # 0.3 K/uL (0.0-0.7); HEMOGLOBIN 14.9 g/dL (12.0-18.0); LYMPH # 1.5 K/uL (1.0-4.3); MONO # 0.6 K/uL (0.0-0.8)
[2018-12-25 08:51] LABS: EOS % 5.2 % (0.0-4.0); LYMPH % 24.5 % (20.0-40.0); MEAN CELL VOLUME 101.8 fL (80.0-94.0); MEAN CORPUSCULAR HEMOGLOBIN 35.5 pg (27.0-31.0); MEAN CORPUSCULAR HGB CONC 34.9 g/dL (33.0-37.0); MEAN PLATELET VOLUME 10.2 fL (7.2-11.7); MONO % 10.5 % (0.0-10.0); NEUT # 3.4 K/uL (1.8-7.0); NEUT % 57.8 % (50.0-75.0); NRBC % 0.1 % (0.0-2.0); RBC 4.19 Mil/uL (4.40-5.90)
[2018-12-25 09:03] LABS: ALB/GLOB RATIO 1.5 (1.0-2.1); ALBUMIN 4.1 g/dL (3.5-5.0); ALT/SGPT 25 U/L (21-72); AST/SGOT 24 U/L (17-59); BLOOD UREA NITROGEN 13 mg/dL (9-20); CALCIUM 9.3 mg/dl (8.6-10.4); GFR NON-AFRICAN AMERICAN > 60
[2018-12-25] MEDS: Brimonidine 0.2% Opth Sol (5ml) OU SCH (10:33)
[2018-12-25] MEDS: Dorzolamide 2% Opht Sol 10ml OU SCH ×2 (10:36→17:10)
[2018-12-25 15:37] VITALS: RESP 20
--- NOTE | 2018-12-25 20:17 | CP.PCM.PN ---
Subjective - Date & Time of Evaluation Date of Evaluation: 12/25/18 Time of Evaluation: 16:40 - Subjective Subjective: Patient seen and evaluated Chest pain resolved Physical Exam - Constitutional Appears: Non-toxic, No Acute Distress - Head Exam Head Exam: ATRAUMATIC, NORMOCEPHALIC - Eye Exam Eye Exam: EOMI, Normal appearance, PERRL - ENT Exam ENT Exam: Mucous Membranes Moist - Respiratory Exam Respiratory Exam: Clear to Auscultation Bilateral, NORMAL BREATHING PATTERN. absent: Accessory Muscle Use, Rhonchi, Wheezes, Respiratory Distress - Cardiovascular Exam Cardiovascular Exam: REGULAR RHYTHM, +S1, +S2. absent: Tachycardia, Systolic Murmur - GI/Abdominal Exam GI & Abdominal Exam: Normal Bowel Sounds, Soft. absent: Distended, Firm, Guarding, Rebound, Rigid, Tenderness - Extremities Exam Extremities exam: Positive for: normal inspection - Neurological Exam Neurological exam: Alert, CN II-XII Intact, Oriented x3 - Psychiatric Exam Psychiatric exam: Normal Affect, Normal Mood - Skin Skin Exam: Dry, Intact, Warm Assessment & Plan - Assessment and Plan (Free Text) Assessment: Patient is a 68 year old male with past medical history of hypertension and glaucoma presenting with chief complaint of chest pain Plan: Chest pain ECHO and Stress test on Tuesday Hypertension - confirm home meds with pharmacy PPX - Lovenox SC - Protonix IVP Objective - Vital Signs/Intake and Output Vital Signs (last 24 hours): Temp Pulse Resp BP Pulse Ox 97.8 F 62 20 123/77 98 12/25/18 15:00 12/25/18 19:50 12/25/18 15:00 12/25/18 15:00 12/25/18 16:11 - Medications Medications: Current Medications Acetaminophen (Tylenol 325mg Tab) 650 mg PO Q6 PRN PRN Reason: Pain, moderate (4-7) Aspirin (Ecotrin) 81 mg PO DAILY [facility] Last Admin: 12/24/18 09:25 Dose: Not Given Brimonidine Tartrate (Alphagan 0.2% Opht) 0 ml OU DAILY [facility] Last Admin: 12/25/18 10:33 Dose: 1 drop Dorzolamide HCl (Trusopt) 1 ml OU BID [facility] Last Admin: 12/25/18 17:10 Dose: 1 drop Enoxaparin Sodium (Lovenox) 40 mg SC DAILY [facility] Last Admin: 12/24/18 09:25 Dose: Not Given Losartan Potassium (Cozaar) 100 mg PO DAILY [facility] Last Admin: 12/25/18 10:32 Dose: 100 mg Nitroglycerin (Nitro-Bid 2% Oint) 1 ea TOP Q1H PRN PRN Reason: Pain, moderate (4-7) Pantoprazole Sodium (Protonix Inj) 40 mg IVP DAILY [facility] Last Admin: 12/25/18 10:32 Dose: 40 mg Timolol Maleate (Timoptic 0.5% Oph Soln) 1 drop OU BID [facility] Last Admin: 12/25/18 17:10 Dose: 1 drop - Labs Labs: 12/25/18 08:28 12/25/18 08:28 PT 11.1 SECONDS (9.7-12.2) 12/24/18 01:21 INR 1.0 12/24/18 01:21 APTT 30.1 SECONDS (21-34) 12/24/18 01:21
[2018-12-26 06:35] LABS: BASO # 0.1 K/uL (0.0-0.2); BASO % 1.2 % (0.0-2.0); EOS # 0.3 K/uL (0.0-0.7); HEMOGLOBIN 14.1 g/dL (12.0-18.0); LYMPH # 1.4 K/uL (1.0-4.3); LYMPH % 24.4 % (20.0-40.0); MEAN CELL VOLUME 101.4 fL (80.0-94.0); MEAN CORPUSCULAR HGB CONC 34.5 g/dL (33.0-37.0); MONO # 0.7 K/uL (0.0-0.8); MONO % 11.7 % (0.0-10.0); NEUT # 3.3 K/uL (1.8-7.0); NEUT % 57.7 % (50.0-75.0); NRBC % 0.2 % (0.0-2.0); RBC 4.03 Mil/uL (4.40-5.90); RED CELL DISTRIBUTION WIDTH 12.6 % (11.5-14.5); WHITE BLOOD COUNT 5.7 K/uL (4.8-10.8)
[2018-12-26 06:45] LABS: ALBUMIN 3.9 g/dL (3.5-5.0); ALT/SGPT 24 U/L (21-72); AST/SGOT 18 U/L (17-59); BLOOD UREA NITROGEN 12 mg/dL (9-20); CALCIUM 8.3 mg/dl (8.6-10.4); GFR NON-AFRICAN AMERICAN > 60
--- NOTE | 2018-12-26 10:27 | CP.PCM.CON ---
History of Present Illness - History of Present Illness History of Present Illness: HEMATOLOGY CONSULT 68 year old male with past medical history of hypertension and glaucoma admitted for chest pain. Hematology consulted for thrombocytopenia noted on routine testing. Mr. Chinchilla denies any epistaxis, bruising, bleeding, blood in the stool or urine. States that his prior labwork was normal. His chest pain has since resolved and he is eager to go home. ROS: all systems reviewed and are negative other than what is mentioned above PMH: hypertension, glaucoma PSH: eye surgery SHx: rare alcohol use, denies illicit drug use, smoked 1 pack every 3 days for 8 years (quit 2017) FHx: denies Allergies: none Review of Systems - Constitutional Constitutional: As Per HPI - EENT Eyes: As Per HPI Ears: As Per HPI Nose/Mouth/Throat: As Per HPI - Cardiovascular Cardiovascular: As Per HPI - Respiratory Respiratory: As Per HPI - Gastrointestinal Gastrointestinal: As Per HPI - Genitourinary Genitourinary: As Per HPI - Reproductive: Male Reproductive:Male: As Per HPI - Musculoskeletal Musculoskeletal: As Per HPI - Integumentary Integumentary: As Per HPI - Neurological Neurological: As Per HPI - Psychiatric Psychiatric: As Per HPI - Endocrine Endocrine: As Per HPI - Hematologic/Lymphatic Hematologic: As Per HPI Past Patient History - Infectious Disease Hx of Infectious Diseases: None - Past Medical History & Family History Past Medical History?: Yes - Past Social History Smoking Status: Former Smoker - CARDIAC Hx Hypertension: Yes - PULMONARY Hx Respiratory Disorders: No - NEUROLOGICAL Hx Neurological Disorder: No - HEENT Hx HEENT Problems: Yes Hx Glaucoma: Yes - RENAL Hx Chronic Kidney Disease: No - ENDOCRINE/METABOLIC Hx Endocrine Disorders: No - HEMATOLOGICAL/ONCOLOGICAL Hx Blood Disorders: No - INTEGUMENTARY Hx Dermatological Problems: No - MUSCULOSKELETAL/RHEUMATOLOGICAL Hx Musculoskeletal Disorders: No - GASTROINTESTINAL Hx Gastrointestinal Disorders: No - GENITOURINARY/GYNECOLOGICAL Hx Genitourinary Disorders: No - PSYCHIATRIC Hx Substance Use: No - SURGICAL HISTORY Hx Surgeries: Yes Other/Comment: bilateral eye surgery - ANESTHESIA Hx Anesthesia: Yes Hx Anesthesia Reactions: No Hx Malignant Hyperthermia: No Meds Allergies/Adverse Reactions: Allergies Allergy/AdvReac Type Severity Reaction Status Date / Time No Known Allergies Allergy Verified 12/23/18 23:23 - Medications Medications: Current Medications Acetaminophen (Tylenol 325mg Tab) 650 mg PO Q6 PRN PRN Reason: Pain, moderate (4-7) Aspirin (Ecotrin) 81 mg PO DAILY [facility] Last Admin: 12/24/18 09:25 Dose: Not Given Brimonidine Tartrate (Alphagan 0.2% Opht) 0 ml OU DAILY [facility] Last Admin: 12/25/18 10:33 Dose: 1 drop Dorzolamide HCl (Trusopt) 1 ml OU BID [facility] Last Admin: 12/25/18 17:10 Dose: 1 drop Enoxaparin Sodium (Lovenox) 40 mg SC DAILY [facility] Last Admin: 12/24/18 09:25 Dose: Not Given Losartan Potassium (Cozaar) 100 mg PO DAILY [facility] Last Admin: 12/25/18 10:32 Dose: 100 mg Nitroglycerin (Nitro-Bid 2% Oint) 1 ea TOP Q1H PRN PRN Reason: Pain, moderate (4-7) Pantoprazole Sodium (Protonix Inj) 40 mg IVP DAILY [facility] Last Admin: 12/25/18 10:32 Dose: 40 mg Timolol Maleate (Timoptic 0.5% Ophth Soln) 1 drop OU BID [facility] Last Admin: 12/25/18 17:10 Dose: 1 drop Physical Exam - Constitutional Appears: Well, Non-toxic, No Acute Distress - Head Exam Head Exam: ATRAUMATIC, NORMAL INSPECTION, NORMOCEPHALIC - Eye Exam Eye Exam: EOMI, Normal appearance, PERRL Pupil Exam: NORMAL ACCOMODATION, PERRL - ENT Exam ENT Exam: Mucous Membranes Moist, Normal Exam - Neck Exam Neck exam: Positive for: Full Rom, Normal Inspection. Negative for: Lymphadenopathy, Thyromegaly - Respiratory Exam Respiratory Exam: Clear to Auscultation Bilateral. absent: Rhonchi, Wheezes, Respiratory Distress - Cardiovascular Exam Cardiovascular Exam: REGULAR RHYTHM, +S1, +S2 - GI/Abdominal Exam GI & Abdominal Exam: Normal Bowel Sounds - Rectal Exam Rectal Exam: NORMAL INSPECTION - Extremities Exam Extremities exam: Positive for: full ROM, normal inspection - Back Exam Back exam: FULL ROM, NORMAL INSPECTION - Neurological Exam Neurological exam: Alert, CN II-XII Intact, Normal Gait, Oriented x3 - Psychiatric Exam Psychiatric exam: Normal Mood Results - Vital Signs Recent Vital Signs: Last Vital Signs Temp 97.9 F 12/26/18 07:06 Pulse 55 L 12/26/18 07:06 Resp 20 12/26/18 07:06 BP 172/82 H 12/26/18 07:06 Pulse Ox 99 12/26/18 07:06 - Labs Result Diagrams: 12/26/18 06:17 12/26/18 06:17 Labs: Laboratory Results - last 24 hr 12/25/18 12/26/18 12/26/18 08:28 06:17 06:17 WBC 6.0 5.7 RBC 4.19 L 4.03 L Hgb 14.9 14.1 Hct 42.7 40.8 MCV 101.8 H 101.4 H MCH 35.5 H 35.0 H MCHC 34.9 34.5 RDW 13.0 12.6 Plt Count 85 L D 69 L MPV 10.2 8.0 Neut % (Auto) 57.8 57.7 Lymph % (Auto) 24.5 24.4 [place] % (Auto) 10.5 H 11.7 H Eos % (Auto) 5.2 H 5.0 H Baso % (Auto) 2.0 1.2 Neut # (Auto) 3.4 3.3 Lymph # (Auto) 1.5 1.4 [place] # (Auto) 0.6 0.7 Eos # (Auto) 0.3 0.3 Baso # (Auto) 0.1 0.1 Differential Comment Sodium 136 Potassium 4.2 Chloride 102 Carbon Dioxide 24 Anion Gap 13 BUN 12 Creatinine 0.7 L Est GFR ( Amer) > 60 Est GFR (Non-Af Amer) > 60 Random Glucose 90 Calcium 8.3 L Total Bilirubin 0.5 AST 18 ALT 24 Alkaline Phosphatase 45 Total Protein 5.9 L Albumin 3.9 Globulin 2.0 L Albumin/Globulin Ratio 2.0 Assessment & Plan - Assessment and Plan (Free Text) Assessment: In summary, this is a 68 year old male patient who was noted to have thrombocytopenia. Upon review his first CBC was noted to have platelet clumping which was confirmed. Also noted to have elevated MCV likely due to borderline B12 deficiency and cannot rule out alcohol abuse. At this time no need for further hematological workup or intervention, but needs close follow up. Plan Replete B12 with sc injection while admitted Needs to follow up with primary to trend CBC Correct TSH, endocrine evaluation Rest of care as per primary team Thank you for allowing me to partake in your patients care Sincerely, Saurav Lnych
[2018-12-26] MEDS: Brimonidine 0.2% Opth Sol (5ml) OU SCH (10:30)
[2018-12-26] MEDS: Dorzolamide 2% Opht Sol 10ml OU SCH ×2 (10:30→17:31)
--- NOTE | 2018-12-26 19:10 | CP.PCM.PN ---
"<Rolf Gama - Last Filed: 12/26/18 19:12> Subjective - Date & Time of Evaluation Date of Evaluation: 12/26/18 Time of Evaluation: 11:00 - Subjective Subjective: Progress Note for Hospitalist Service, Dr. Ramos Pt seen and examined at bedside this am. Denies any acute complaints, states chest pain has resolved. No acute events reported overnight by staff. Had echo done today. 12-point ROS obtained, otherwise neg as per pt. Objective - Vital Signs/Intake and Output Vital Signs (last 24 hours): Temp Pulse Resp BP Pulse Ox 97.7 F 57 L 20 114/69 100 12/26/18 15:00 12/26/18 15:23 12/26/18 15:00 12/26/18 15:00 12/26/18 15:37 Intake and Output: 12/26/18 12/27/18 18:59 06:59 Intake Total 200 Balance 200 - Medications Medications: Current Medications Acetaminophen (Tylenol 325mg Tab) 650 mg PO Q6 PRN PRN Reason: Pain, moderate (4-7) Aspirin (Ecotrin) 81 mg PO DAILY [facility] Last Admin: 12/24/18 09:25 Dose: Not Given Brimonidine Tartrate (Alphagan 0.2% Opht) 0 ml OU DAILY [facility] Last Admin: 12/26/18 10:30 Dose: 1 drop Dorzolamide HCl (Trusopt) 1 ml OU BID [facility] Last Admin: 12/26/18 17:31 Dose: 1 drop Enoxaparin Sodium (Lovenox) 40 mg SC DAILY [facility] Last Admin: 12/24/18 09:25 Dose: Not Given Losartan Potassium (Cozaar) 100 mg PO DAILY [facility] Last Admin: 12/26/18 10:29 Dose: 100 mg Nitroglycerin (Nitro-Bid 2% Oint) 1 ea TOP Q1H PRN PRN Reason: Pain, moderate (4-7) Pantoprazole Sodium (Protonix Inj) 40 mg IVP DAILY [facility] Last Admin: 12/26/18 10:29 Dose: 40 mg Timolol Maleate (Timoptic 0.5% Ophth Soln) 1 drop OU BID [facility] Last Admin: 12/26/18 17:31 Dose: 1 drop - Labs Labs: 12/26/18 06:17 12/26/18 06:17 PT 11.1 SECONDS (9.7-12.2) 12/24/18 01:21 INR 1.0 12/24/18 01:21 APTT 30.1 SECONDS (21-34) 12/24/18 01:21 - Constitutional Appears: Non-toxic, No Acute Distress - Head Exam Head Exam: ATRAUMATIC, NORMOCEPHALIC - Eye Exam Eye Exam: EOMI, Normal appearance, PERRL - ENT Exam ENT Exam: Mucous Membranes Moist - Respiratory Exam Respiratory Exam: Clear to Ausculation Bilateral, NORMAL BREATHING PATTERN. absent: Rales, Rhonchi, Wheezes - Cardiovascular Exam Cardiovascular Exam: REGULAR RHYTHM, +S1, +S2. absent: Gallop, Rubs, Murmur - GI/Abdominal Exam GI & Abdominal Exam: Soft, Normal Bowel Sounds. absent: Distended, Tenderness, Organomegaly - Extremities Exam Extremities Exam: Full ROM, Normal Capillary Refill, Normal Inspection. absent: Pedal Edema, Tenderness - Neurological Exam Neurological Exam: Alert, Awake, CN II-XII Intact, Oriented x3 - Skin Skin Exam: Dry, Intact, Normal Color, Warm Assessment and Plan - Assessment and Plan (Free Text) Assessment: 68 year old male with past medical history of hypertension and glaucoma presenting with chief complaint of chest pain. Cardiology consulted (Dr. Benitez). Plan: Chest pain - EKG shows NSR, nonspecific changes - JACOB neg x3 - CXR unremarkable - Cardiology consulted, appreciate recs - TSH: 0.24, Free T4:1.01; can have repeat levels outpatient in 6 weeks - Hgba1c: 5% - Lipid panel: Triglycerides 72| Cholesterol 163| LDL 85| HDL 76 - Nitrobid PRN - Aspirin 81 mg PO DAILY - Nitroglycerin 2% 1 EA top q1 prn - Dr. Benitez consulted, recs appreciated - NPO after midnight for cardiac stress test tomorrow - F/u echo results Hypertension - C/w Losartan 100mg PO DAILY Thrombocytopenia -Plts stable this am -Hemdynamically stable -Heme/onc Dr. Lynch consulted--> Help appreciated recommends repleting w/ B12 while admitted Glaucoma -Continue Dorzolamide 1ml OU BID -Continue Timolol 1 drop OU BID PPX - Lovenox SC - Protonix IVP Pt seen, examined with, and plan discussed with Dr. Ramos, attending physician. Rolf Gama DO PGY-1, Senior [employer] Developer Pager #[phone] <Deshawn Ramos H - Last Filed: 12/27/18 07:32> Objective - Vital Signs/Intake and Output Vital Signs (last 24 hours): Temp Pulse Resp BP Pulse Ox 98 F 75 20 151/86 H 99 12/26/18 23:45 12/27/18 00:45 12/26/18 23:45 12/26/18 23:45 12/26/18 23:45 Intake and Output: 12/27/18 12/27/18 06:59 18:59 Intake Total 300 Balance 300 - Medications Medications: Current Medications Acetaminophen (Tylenol 325mg Tab) 650 mg PO Q6 PRN PRN Reason: Pain, moderate (4-7) Aspirin (Ecotrin) 81 mg PO DAILY [facility] Last Admin: 12/24/18 09:25 Dose: Not Given Brimonidine Tartrate (Alphagan 0.2% Opht) 0 ml OU DAILY [facility] Last Admin: 12/26/18 10:30 Dose: 1 drop Dorzolamide HCl (Trusopt) 1 ml OU BID [facility] Last Admin: 12/26/18 17:31 Dose: 1 drop Enoxaparin Sodium (Lovenox) 40 mg SC DAILY [facility] Last Admin: 12/24/18 09:25 Dose: Not Given Losartan Potassium (Cozaar) 100 mg PO DAILY [facility] Last Admin: 12/26/18 10:29 Dose: 100 mg Nitroglycerin (Nitro-Bid 2% Oint) 1 ea TOP Q1H PRN PRN Reason: Pain, moderate (4-7) Pantoprazole Sodium (Protonix Inj) 40 mg IVP DAILY [facility] Last Admin: 12/26/18 10:29 Dose: 40 mg Timolol Maleate (Timoptic 0.5% Ophth Soln) 1 drop OU BID [facility] Last Admin: 12/26/18 17:31 Dose: 1 drop - Labs Labs: 12/26/18 06:17 12/27/18 06:44 PT 11.1 SECONDS (9.7-12.2) 12/24/18 01:21 INR 1.0 12/24/18 01:21 APTT 30.1 SECONDS (21-34) 12/24/18 01:21 Attending/Attestation - Attestation I have personally seen and examined this patient.: Yes I have fully participated in the care of the patient.: Yes I have reviewed all pertinent clinical information, including history, physical exam and plan: Yes Notes (Text): 12/27/18 07:29 Medical attending: Patient was seen and examined by me. Agree with the above note by the resident The patient had just done the echo. Pending the stress test at this time. Otherwise the cardiac enzymes negative where at this time. Deshawn Ramos"
--- NOTE | 2018-12-26 20:35 | CARD ---
APPROVED REPORT Date of service: 12/26/2018 EXAM: Two-dimensional and M-mode echocardiogram with Doppler and color Doppler. Other Information Quality : GoodRhythm : INDICATION Dyspnea Chest Pain RISK FACTORS Hypertension 2D DIMENSIONS IVSd0.8 (0.7-1.1cm)LVDd4.4 (3.9-5.9cm) PWd0.9 (0.7-1.1cm)LA Izufpi17 (18-58mL) LVDs2.9 (2.5-4.0cm)FS (%) 34.3 % LVEF (%)63.6 (>50%)LVEF (Pickett's)74.22 % IVC0.00 cm M-Mode DIMENSIONS RVDd2.82 (2.1-3.2cm)Left Atrium (MM)2.87 (2.5-4.0cm) IVSd1.05 (0.7-1.1cm)Aortic Root3.25 (2.2-3.7cm) LVDd3.97 (4.0-5.6cm)Aortic Cusp Exc.2.35 (1.5-2.0cm) PWd1.17 (0.7-1.1cm)FS (%) 44 % LVDs2.22 (2.0-3.8cm)LVEF (%)76 (>50%) Mitral Valve MV E Clxwucjo71.3cm/sMV A Vzfkzrlt82.5cm/sE/A ratio0.8 TDI Lateral E' Peak V12.80cm/sMedial E' Peak V8.80cm/sE/Lateral E'4.6 E/Medial E'6.6 Tricuspid Valve TR Peak Thkduzxb382tu/sTR Peak Gr.60gkRhKKFJ20mpVv LEFT VENTRICLE The left ventricle is normal size. There is normal left ventricular wall thickness. The left ventricular function is normal. The left ventricular ejection fraction is within the normal range. There is normal LV segmental wall motion. Transmitral Doppler flow pattern is Grade I-abnormal relaxation pattern. RIGHT VENTRICLE The right ventricle is normal size. There is normal right ventricular wall thickness. The right ventricular systolic function is normal. ATRIA The left atrium size is normal. The right atrium size is normal. AORTIC VALVE The aortic valve is normal in structure. No aortic regurgitation is present. There is no aortic valvular stenosis. MITRAL VALVE The mitral valve is normal in structure. There is no evidence of mitral valve prolapse. There is no mitral valve stenosis. TRICUSPID VALVE The tricuspid valve is normal in structure. There is trace tricuspid regurgitation. PULMONIC VALVE The pulmonary valve is normal in structure. There is mild pulmonic valvular regurgitation. GREAT VESSELS The aortic root is normal in size. The IVC is normal in size and collapses >50% with inspiration. PERICARDIAL EFFUSION There is no pericardial effusion. <Conclusion> There is normal left ventricular wall thickness. The left ventricular function is normal. The left ventricular ejection fraction is within the normal range. There is normal LV segmental wall motion. Transmitral Doppler flow pattern is Grade I-abnormal relaxation pattern. There is trace tricuspid regurgitation. There is mild pulmonic valvular regurgitation.
--- NOTE | 2018-12-26 23:19 | CP.PCM.PN ---
Subjective - Date & Time of Evaluation Date of Evaluation: 12/26/18 Time of Evaluation: 15:35 - Subjective Subjective: Patient seen and evaluated Chest pain resolved For stress test in am Physical Exam - Constitutional Appears: Non-toxic, No Acute Distress - Head Exam Head Exam: ATRAUMATIC, NORMOCEPHALIC - Eye Exam Eye Exam: EOMI, Normal appearance, PERRL - ENT Exam ENT Exam: Mucous Membranes Moist - Respiratory Exam Respiratory Exam: Clear to Auscultation Bilateral, NORMAL BREATHING PATTERN. absent: Accessory Muscle Use, Rhonchi, Wheezes, Respiratory Distress - Cardiovascular Exam Cardiovascular Exam: REGULAR RHYTHM, +S1, +S2. absent: Tachycardia, Systolic Murmur - GI/Abdominal Exam GI & Abdominal Exam: Normal Bowel Sounds, Soft. absent: Distended, Firm, Guarding, Rebound, Rigid, Tenderness - Extremities Exam Extremities exam: Positive for: normal inspection - Neurological Exam Neurological exam: Alert, CN II-XII Intact, Oriented x3 - Psychiatric Exam Psychiatric exam: Normal Affect, Normal Mood - Skin Skin Exam: Dry, Intact, Warm Assessment & Plan - Assessment and Plan (Free Text) Assessment: Patient is a 68 year old male with past medical history of hypertension and glaucoma presenting with chief complaint of chest pain Plan: Chest pain Stress in am Hypertension - confirm home meds with pharmacy PPX - Lovenox SC - Protonix IVP Objective - Vital Signs/Intake and Output Vital Signs (last 24 hours): Temp Pulse Resp BP Pulse Ox 97.7 F 61 20 114/69 100 12/26/18 15:00 12/26/18 19:58 12/26/18 15:00 12/26/18 15:00 12/26/18 15:37 Intake and Output: 12/26/18 12/27/18 18:59 06:59 Intake Total 200 300 Balance 200 300 - Medications Medications: Current Medications Acetaminophen (Tylenol 325mg Tab) 650 mg PO Q6 PRN PRN Reason: Pain, moderate (4-7) Aspirin (Ecotrin) 81 mg PO DAILY [facility] Last Admin: 12/24/18 09:25 Dose: Not Given Brimonidine Tartrate (Alphagan 0.2% Opht) 0 ml OU DAILY [facility] Last Admin: 12/26/18 10:30 Dose: 1 drop Dorzolamide HCl (Trusopt) 1 ml OU BID [facility] Last Admin: 12/26/18 17:31 Dose: 1 drop Enoxaparin Sodium (Lovenox) 40 mg SC DAILY [facility] Last Admin: 12/24/18 09:25 Dose: Not Given Losartan Potassium (Cozaar) 100 mg PO DAILY [facility] Last Admin: 12/26/18 10:29 Dose: 100 mg Nitroglycerin (Nitro-Bid 2% Oint) 1 ea TOP Q1H PRN PRN Reason: Pain, moderate (4-7) Pantoprazole Sodium (Protonix Inj) 40 mg IVP DAILY [facility] Last Admin: 12/26/18 10:29 Dose: 40 mg Timolol Maleate (Timoptic 0.5% Ophth Soln) 1 drop OU BID [facility] Last Admin: 12/26/18 17:31 Dose: 1 drop - Labs Labs: 12/26/18 06:17 12/26/18 06:17 PT 11.1 SECONDS (9.7-12.2) 12/24/18 01:21 INR 1.0 12/24/18 01:21 APTT 30.1 SECONDS (21-34) 12/24/18 01:21
--- NOTE | 2018-12-27 00:06 | CARD ---
APPROVED REPORT Date of service: 12/23/2018 EKG Measurement Heart [id number] <Conclusion> Normal sinus rhythm Incomplete right bundle branch block Borderline ECG
[2018-12-27 07:07] LABS: ALB/GLOB RATIO 1.8 (1.0-2.1); ALT/SGPT 24 U/L (21-72); AST/SGOT 34 U/L (17-59); BLOOD UREA NITROGEN 18 mg/dL (9-20); CALCIUM 8.8 mg/dl (8.6-10.4); GFR NON-AFRICAN AMERICAN > 60
[2018-12-27 07:16] LABS: BASO # 0.1 K/uL (0.0-0.2); EOS # 0.3 K/uL (0.0-0.7); MONO # 0.8 K/uL (0.0-0.8); NEUT # 3.7 K/uL (1.8-7.0); NRBC % 0.1 % (0.0-2.0); WHITE BLOOD COUNT 6.2 K/uL (4.8-10.8)
[2018-12-27 07:35] LABS: EOS % 4.6 % (0.0-4.0); HEMOGLOBIN 13.7 g/dL (12.0-18.0); LYMPH # 1.4 K/uL (1.0-4.3); LYMPH % 21.8 % (20.0-40.0); MEAN CELL VOLUME 100.7 fL (80.0-94.0); MEAN CORPUSCULAR HGB CONC 34.7 g/dL (33.0-37.0); MEAN PLATELET VOLUME 10.1 fL (7.2-11.7); MONO % 12.5 % (0.0-10.0); NEUT % 60.1 % (50.0-75.0); RBC 3.92 Mil/uL (4.40-5.90); RED CELL DISTRIBUTION WIDTH 12.7 % (11.5-14.5)
[2018-12-27] MEDS: Brimonidine 0.2% Opth Sol (5ml) OU SCH ×2 (10:36→13:00)
[2018-12-27] MEDS: Dorzolamide 2% Opht Sol 10ml OU SCH ×3 (10:37→18:35)
[2018-12-27 16:04] VITALS: BP 151/86; PULSE 61; TEMP 98.1; O2SAT 99
--- NOTE | 2018-12-27 17:48 | CP.PCM.PN ---
"<Rolf Gama - Last Filed: 12/27/18 17:49> Subjective - Date & Time of Evaluation Date of Evaluation: 12/27/18 Time of Evaluation: 10:00 - Subjective Subjective: Medicine Progress Note for Hospitalist Service, Dr. Ramos Pt seen and examined at bedside. Denies any acute complaints. NPO for stress test today. 12-point ROS obtained, otherwise neg as per pt. Objective - Vital Signs/Intake and Output Vital Signs (last 24 hours): Temp Pulse Resp BP Pulse Ox 98.1 F 61 20 151/86 H 99 12/27/18 16:00 12/27/18 16:00 12/27/18 16:00 12/27/18 16:00 12/27/18 16:00 Intake and Output: 12/27/18 12/27/18 06:59 18:59 Intake Total 300 Balance 300 - Medications Medications: Current Medications Acetaminophen (Tylenol 325mg Tab) 650 mg PO Q6 PRN PRN Reason: Pain, moderate (4-7) Aspirin (Ecotrin) 81 mg PO DAILY [facility] Last Admin: 12/24/18 09:25 Dose: Not Given Brimonidine Tartrate (Alphagan 0.2% Opht) 0 ml OU DAILY [facility] Last Admin: 12/27/18 13:00 Dose: 1 drop Cyanocobalamin (Vitamin B12 1000 Mcg/Ml Inj) 1,000 mcg IM Q7D [facility] Dorzolamide HCl (Trusopt) 1 ml OU BID [facility] Last Admin: 12/27/18 13:01 Dose: 1 drop Enoxaparin Sodium (Lovenox) 40 mg SC DAILY [facility] Last Admin: 12/24/18 09:25 Dose: Not Given Losartan Potassium (Cozaar) 100 mg PO DAILY [facility] Last Admin: 12/27/18 13:00 Dose: 100 mg Nitroglycerin (Nitro-Bid 2% Oint) 1 ea TOP Q1H PRN PRN Reason: Pain, moderate (4-7) Pantoprazole Sodium (Protonix Ec Tab) 40 mg PO DAILY [facility] Timolol Maleate (Timoptic 0.5% Ophth Soln) 1 drop OU BID [facility] Last Admin: 12/27/18 13:00 Dose: 1 drop - Labs Labs: 12/27/18 06:44 12/27/18 06:44 PT 11.1 SECONDS (9.7-12.2) 12/24/18 01:21 INR 1.0 12/24/18 01:21 APTT 30.1 SECONDS (21-34) 12/24/18 01:21 - Constitutional Appears: Non-toxic, No Acute Distress - Head Exam Head Exam: ATRAUMATIC, NORMOCEPHALIC - Eye Exam Eye Exam: EOMI, Normal appearance, PERRL - ENT Exam ENT Exam: Mucous Membranes Moist - Neck Exam Neck Exam: Full ROM, Normal Inspection. absent: Tenderness - Respiratory Exam Respiratory Exam: Clear to Ausculation Bilateral, NORMAL BREATHING PATTERN. absent: Rales, Rhonchi, Wheezes - Cardiovascular Exam Cardiovascular Exam: REGULAR RHYTHM, +S1, +S2. absent: Gallop, Rubs, Murmur - GI/Abdominal Exam GI & Abdominal Exam: Soft, Normal Bowel Sounds. absent: Distended, Guarding, Tenderness, Organomegaly - Extremities Exam Extremities Exam: Full ROM, Normal Capillary Refill, Normal Inspection. absent: Pedal Edema, Tenderness - Neurological Exam Neurological Exam: Alert, Awake, CN II-XII Intact, Oriented x3 - Skin Skin Exam: Dry, Intact, Warm Assessment and Plan - Assessment and Plan (Free Text) Assessment: 68 year old male with past medical history of hypertension and glaucoma presenting with chief complaint of chest pain. Cardiology consulted (Dr. Benitez). Plan: Chest pain - EKG shows NSR, nonspecific changes - JACOB neg x3 - CXR unremarkable - Cardiology consulted, appreciate recs - TSH: 0.24, Free T4:1.01; can have repeat levels outpatient in 6 weeks - Hgba1c: 5% - Lipid panel: Triglycerides 72| Cholesterol 163| LDL 85| HDL 76 - Nitrobid PRN - Aspirin 81 mg PO DAILY - Nitroglycerin 2% 1 EA top q1 prn - Dr. Benitez consulted, recs appreciated - S/p cardiac stress test today - F/u echo results Hypertension - C/w Losartan 100mg PO DAILY Thrombocytopenia -Plts stable this am -Hemdynamically stable -Heme/onc Dr. Lynch consulted--> Help appreciated recommends repleting w/ B12 while admitted Glaucoma -Continue Dorzolamide 1ml OU BID -Continue Timolol 1 drop OU BID PPX - Lovenox SC - Protonix IVP Dispo: Pending Cardiac Clearance. Pt seen, examined with, and plan discussed with Dr. Ramos, attending physician. Rolf Gama DO PGY-1, A [employer] Pager #[phone] <Deshawn Ramos H - Last Filed: 12/27/18 18:21> Objective - Vital Signs/Intake and Output Vital Signs (last 24 hours): Temp Pulse Resp BP Pulse Ox 98.1 F 61 20 151/86 H 99 12/27/18 16:00 12/27/18 16:00 12/27/18 16:00 12/27/18 16:00 12/27/18 16:00 Intake and Output: 12/27/18 12/27/18 06:59 18:59 Intake Total 300 Balance 300 - Medications Medications: Current Medications Acetaminophen (Tylenol 325mg Tab) 650 mg PO Q6 PRN PRN Reason: Pain, moderate (4-7) Aspirin (Ecotrin) 81 mg PO DAILY [facility] Last Admin: 12/24/18 09:25 Dose: Not Given Brimonidine Tartrate (Alphagan 0.2% Opht) 0 ml OU DAILY [facility] Last Admin: 12/27/18 13:00 Dose: 1 drop Cyanocobalamin (Vitamin B12 1000 Mcg/Ml Inj) 1,000 mcg IM Q7D [facility] Dorzolamide HCl (Trusopt) 1 ml OU BID [facility] Last Admin: 12/27/18 13:01 Dose: 1 drop Enoxaparin Sodium (Lovenox) 40 mg SC DAILY [facility] Last Admin: 12/24/18 09:25 Dose: Not Given Losartan Potassium (Cozaar) 100 mg PO DAILY [facility] Last Admin: 12/27/18 13:00 Dose: 100 mg Nitroglycerin (Nitro-Bid 2% Oint) 1 ea TOP Q1H PRN PRN Reason: Pain, moderate (4-7) Pantoprazole Sodium (Protonix Ec Tab) 40 mg PO DAILY [facility] Timolol Maleate (Timoptic 0.5% Ophth Soln) 1 drop OU BID [facility] Last Admin: 12/27/18 13:00 Dose: 1 drop - Labs Labs: 12/27/18 06:44 12/27/18 06:44 PT 11.1 SECONDS (9.7-12.2) 12/24/18 01:21 INR 1.0 12/24/18 01:21 APTT 30.1 SECONDS (21-34) 12/24/18 01:21 Attending/Attestation - Attestation I have personally seen and examined this patient.: Yes I have fully participated in the care of the patient.: Yes I have reviewed all pertinent clinical information, including history, physical exam and plan: Yes Notes (Text): 12/27/18 18:19 Medical attending : Patient was seen and examined by me. Agree with the above note by the resident The patient was not in any acute distress. We are currently pending cardiology as the patient a stress test today. It is possible the patient could be discharged provided that the stress test is reviewed by cardiology. Patient is"
--- NOTE | 2018-12-28 04:31 | CP.PCM.DIS ---
"Provider - Provider Date of Admission: 12/24/18 03:36 Attending physician: Gus Galindo MD Consults: 12/24/18 04:13 Cardiology Consult Routine Comment: Consulting Provider: Adam Benitez Consulting Physician: Adam Benitez Reason for Consult: chest pain 12/24/18 10:02 Hematology Oncology Consult Routine Comment: Consulting Provider: Saurav Lynch Consulting Physician: Saurav Lynch Reason for Consult: thrombocytopenia, Time Spent in preparation of Discharge (in minutes): 45 Diagnosis - Discharge Diagnosis (1) Chest pain Status: Acute (2) HTN (hypertension), benign Status: Chronic Hospital Course - Lab Results Lab Results: Most Recent Lab Values WBC 6.2 K/uL (4.8-10.8) 12/27/18 06:44 RBC 3.92 Mil/uL (4.40-5.90) L 12/27/18 06:44 Hgb 13.7 g/dL (12.0-18.0) 12/27/18 06:44 Hct 39.5 % (35.0-51.0) 12/27/18 06:44 MCV 100.7 fL (80.0-94.0) H 12/27/18 06:44 MCH 35.0 pg (27.0-31.0) H 12/27/18 06:44 MCHC 34.7 g/dL (33.0-37.0) 12/27/18 06:44 RDW 12.7 % (11.5-14.5) 12/27/18 06:44 Plt Count 80 K/uL (130-400) L 12/27/18 06:44 MPV 10.1 fL (7.2-11.7) 12/27/18 06:44 Neut % (Auto) 60.1 % (50.0-75.0) 12/27/18 06:44 Lymph % (Auto) 21.8 % (20.0-40.0) 12/27/18 06:44 Foster % (Auto) 12.5 % (0.0-10.0) H 12/27/18 06:44 Eos % (Auto) 4.6 % (0.0-4.0) H 12/27/18 06:44 Baso % (Auto) 1.0 % (0.0-2.0) 12/27/18 06:44 Neut # (Auto) 3.7 K/uL (1.8-7.0) 12/27/18 06:44 Lymph # (Auto) 1.4 K/uL (1.0-4.3) 12/27/18 06:44 Foster # (Auto) 0.8 K/uL (0.0-0.8) 12/27/18 06:44 Eos # (Auto) 0.3 K/uL (0.0-0.7) 12/27/18 06:44 Baso # (Auto) 0.1 K/uL (0.0-0.2) 12/27/18 06:44 Neutrophils % (Manual) 51 % (50-75) 12/24/18 01:21 Band Neutrophils % 1 % (0-2) 12/24/18 01:21 Lymphocytes % (Manual) 24 % (20-40) 12/24/18 01:21 Reactive Lymphs % 1 % (0-0) H 12/24/18 01:21 Monocytes % (Manual) 15 % (0-10) H 12/24/18 01:21 Eosinophils % (Manual) 5 % (0-4) H 12/24/18 01:21 Basophils % (Manual) 2 % (0-2) 12/24/18 01:21 Myelocytes % 1 % (0-0) H 12/24/18 01:21 Differential Comment 12/27/18 06:44 Platelet Estimate Decreased (NORMAL) L 12/24/18 01:21 Plt Clumps, EDTA Present 12/24/18 01:21 PT 11.1 SECONDS (9.7-12.2) 12/24/18 01:21 INR 1.0 12/24/18 01:21 APTT 30.1 SECONDS (21-34) 12/24/18 01:21 Sodium 135 mmol/L (132-148) 12/27/18 06:44 Potassium 3.9 mmol/L (3.6-5.2) 12/27/18 06:44 Chloride 103 mmol/L (98-107) 12/27/18 06:44 Carbon Dioxide 24 mmol/L (22-30) 12/27/18 06:44 Anion Gap 12 (10-20) 12/27/18 06:44 BUN 18 mg/dL (9-20) 12/27/18 06:44 Creatinine 0.9 mg/dL (0.8-1.5) 12/27/18 06:44 Est GFR ( Amer) > 60 12/27/18 06:44 Est GFR (Non-Af Amer) > 60 12/27/18 06:44 Random Glucose 94 mg/dL (75-110) 12/27/18 06:44 Hemoglobin A1c 5.0 % (4.2-6.5) 12/24/18 08:00 Calcium 8.8 mg/dl (8.6-10.4) 12/27/18 06:44 Phosphorus 3.7 mg/dL (2.5-4.5) 12/24/18 08:00 Magnesium 2.0 mg/dL (1.6-2.3) 12/24/18 08:00 Total Bilirubin 0.4 mg/dL (0.2-1.3) 12/27/18 06:44 AST 34 U/L (17-59) 12/27/18 06:44 ALT 24 U/L (21-72) 12/27/18 06:44 Alkaline Phosphatase 49 U/L (38-126) 12/27/18 06:44 Total Creatine Kinase 119 U/L (55-170) 12/24/18 16:33 CK-MB (Mass) 1.20 ng/mL (0.0-3.38) 12/24/18 16:33 Troponin I < 0.0120 ng/mL (0.00-0.120) 12/24/18 16:33 NT-Pro-B Natriuret Pep 145 pg/mL (0-900) 12/24/18 01:21 Total Protein 6.1 g/dL (6.3-8.3) L 12/27/18 06:44 Albumin 4.0 g/dL (3.5-5.0) 12/27/18 06:44 Globulin 2.2 gm/dL (2.2-3.9) 12/27/18 06:44 Albumin/Globulin Ratio 1.8 (1.0-2.1) 12/27/18 06:44 Triglycerides 72 mg/dL (0-149) 12/24/18 08:00 Cholesterol 163 mg/dL (0-199) 12/24/18 08:00 LDL Cholesterol Direct 85 mg/dL (0-129) 12/24/18 08:00 HDL Cholesterol 76 mg/dL (30-70) H 12/24/18 08:00 Lipase 45 U/L (23-300) 12/24/18 01:21 Vitamin B12 426 pg/mL (239-931) 12/24/18 08:00 Folate 12.5 ng/mL 12/24/18 08:00 Free T4 1.01 ng/dL (0.78-2.19) 12/24/18 08:00 TSH 3rd Generation 0.24 mIU/L (0.46-4.68) L 12/24/18 08:00 Urine Color Straw (YELLOW) 12/24/18 00:51 Urine Clarity Clear (Clear) 12/24/18 00:51 Urine pH 6.0 (5.0-8.0) 12/24/18 00:51 Ur Specific [place] 1.002 (1.003-1.030) L 12/24/18 00:51 Urine Protein Negative mg/dL (NEGATIVE) 12/24/18 00:51 Urine Glucose (UA) Normal mg/dL (Normal) 12/24/18 00:51 Urine Ketones Negative mg/dL (NEGATIVE) 12/24/18 00:51 Urine Blood Negative (NEGATIVE) 12/24/18 00:51 Urine Nitrate Negative (NEGATIVE) 12/24/18 00:51 Urine Bilirubin Negative (NEGATIVE) 12/24/18 00:51 Urine Urobilinogen Normal mg/dL (0.2-1.0) 12/24/18 00:51 Ur Leukocyte Esterase Neg Kenneth/uL (Negative) 12/24/18 00:51 Urine WBC (Auto) 1 /hpf (0-5) 12/24/18 00:51 Urine RBC (Auto) < 1 /hpf (0-3) 12/24/18 00:51 Ur Squamous Epith Cells 1 /hpf (0-5) 12/24/18 00:51 - Hospital Course Hospital Course: Patient left AMA Was still here at [facility] pending results of his stress testw/ Dr Benitez, did not want to wait, says his is sick and wants to go home Pt given an Rx for ASA 81 and Cozaar 100mg daily and told to f/u in clinic Discharge Exam - Head Exam Head Exam: ATRAUMATIC, NORMOCEPHALIC - Additional Findings Additional findings: - Constitutional Appears: Non-toxic, No Acute Distress - Head Exam Head Exam: ATRAUMATIC, NORMOCEPHALIC - Eye Exam Eye Exam: EOMI, Normal appearance, PERRL - ENT Exam ENT Exam: Mucous Membranes Moist - Neck Exam Neck Exam: Full ROM, Normal Inspection. absent: Tenderness - Respiratory Exam Respiratory Exam: Clear to Ausculation Bilateral, NORMAL BREATHING PATTERN. absent: Rales, Rhonchi, Wheezes - Cardiovascular Exam Cardiovascular Exam: REGULAR RHYTHM, +S1, +S2. absent: Gallop, Rubs, Murmur - GI/Abdominal Exam GI & Abdominal Exam: Soft, Normal Bowel Sounds. absent: Distended, Guarding, Tenderness, Organomegaly - Extremities Exam Extremities Exam: Full ROM, Normal Capillary Refill, Normal Inspection. absent: Pedal Edema, Tenderness - Neurological Exam Neurological Exam: Alert, Awake, CN II-XII Intact, Oriented x3 - Skin Skin Exam: Dry, Intact, Warm Discharge Plan - Follow Up Plan Condition: FAIR Disposition: AGAINST MEDICAL ADVICE Additional Instructions: Chest pain - EKG shows NSR, nonspecific changes - JACOB neg x3 - CXR unremarkable - Cardiology consulted, appreciate recs - TSH: 0.24, Free T4:1.01; can have repeat levels outpatient in 6 weeks - Hgba1c: 5% - Lipid panel: Triglycerides 72| Cholesterol 163| LDL 85| HDL 76 - Nitrobid PRN - Aspirin 81 mg PO DAILY - Nitroglycerin 2% 1 EA top q1 prn - Dr. Benitez consulted, recs appreciated - S/p cardiac stress test - F/u echo results"
--- NOTE | 2018-12-28 08:53 | CARD ---
APPROVED REPORT Date of service: 12/27/2018 Protocol: LEXISCAN Test Type: LEXISCAN STRESS Test Indications: CP Medical History: CP Target HR: 153 bpm Resting ECG: NSR Resting Heart Rate: 70 bpm Resting Blood Pressure: 132/80mmHg submaximum (85%): 130 bpm TEST SUMMARY PREINFSNHYPERV.06:020.00..[id number]/80.1. INFUSIONDOSE 100:300.00.01.061/.2. OIBPFJDIQ60:020.00..[id number]/80.1. PROCEDURE Pharmacologic stress testing was performed using 0.4mg per 5ml of regadenoson given intravenously over 7-10 seconds. POST EXERCISE Reason for Termination: Protocol Completed Target HR: No Max HR: 61 bpm 85% of Maximum Predicted HR: 153 bpm Exercise duration: 00:30 min:sec, 0 Stage Exercise capacity: 1.0METs Max Blood Pressure: 150/80mmHg Blood Pressure response to exercise: normal resting BP - appropriate response Heart Rate response to exercise: appropriate Chest Pain: No, none Angina index: 0 Arrhythmia: No, none ST Change: No, none Deviation: 0 mm INTERPRETATION Stress EKG Conclusion: NEGATIVE LEXISCAN STRESS TEST NORMAL BP RESPONSE TO LEXISCAN NUCLEAR STUDIES TO BE READ SEPARATELY EXAM: Myocardial Perfusion STRESS/REST Imaging Protocol The imaging protocol used to acquire images was Stress Tc-99m/rest Tc-99m 1 day Rest Spect myocardial perfusion imaging was performed in supine position 45 minutes following the injection of 32.8 mCi of Tc-99 Myoview. Gated Stress Spect was performed 45 minutes after intravenous 13.1 mCi Tc-99 Myoview injection. The images were gated to evaluate regional wall motion and calculate ventricular ejection fraction.Images were reconstructed using backfilter projection method in short horizontal and verticle long axis. Spect slices were generated. RESTING DATA EDV69.06dmZK3.80L/min ESV23.00mlMyocardial Xezg162.00g Av. Heart Rate60.00bpm EF67.00% STRESS DATA EDV58.17opNH0.40L/min ESV14.00mlMyocardial Ebcf504.00g EF76.00% Regional WT score at stress:1.00 Regional WM score at stress:0.00 Summed WT score at stress:7.00 Av. Heart Rate76.00bpmSummed WM score at stress:0.00 LV Perf. Quant 17 Seg. SSS0.00 17 Seg. SRS0.00 17 Seg. SDS0.00 Stress Defect Extent (% LAD)0.00Rest Defect Extent (% LAD)0.00Rev. Defect Extent (% LAD)0.00 Stress Defect Extent (% LCX)0.00Rest Defect Extent (% LCX)0.00Rev. Defect Extent (% LCX)0.00 Stress Defect Extent (% RCA)0.00Rest Defect Extent (% RCA)0.00Rev. Defect Extent (% RCA)0.00 Stress Defect Extent (% LITA)0.00Rest Defect Extent (% LITA)0.00Rev. Defect Extent (% LITA)0.00 Other Information Quality:Good IMPRESSION Normal Myocardial Perfusion exercise stress study Left Ventricle LV Function:Left ventricle systolic function is normal. The Ejection Fraction is >55%. Metabolism/Perfusion There are no perfusion/metabolism defects. Conclusion 1. Normal Lexiscan Nuclear Stress test. Normal EF.
[2018-12-28] MEDS ORDERED: Pantoprazole 40 mg EC Tab PO SCH (10:00)
== END 2018-12-27 20:36 | disposition left against medical advice (07) ==
LOC: C.ER 22:56 → C.9E 12-24 03:36 → C.5S 12-24 03:47
PROVIDERS: ADMIT Family Medicine; ATTEND Internal Medicine
DX: R07.9 Chest pain, unspecified (principal); I10 Essential (primary) hypertension; D69.6 Thrombocytopenia, unspecified; E53.8 Deficiency of other specified B group vitamins; H40.9 Unspecified glaucoma; Z87.891 Personal history of nicotine dependence; M54.9 Dorsalgia, unspecified; R06.02 Shortness of breath
CPT/HCPCS: 36415; 71045; 76705; 78452; 80053; 80061; 81001; 82607; 82746; 83036; 83690; 83735; 83880; 84100; 84439; 84443; 84484; 85025; 85610; 85730; 93005; 93017; 93306; 99284; A9502; C9113; G0378; J2785; J3420